=== PATIENT | male | born 1965 | race Caucasian/White ===

== ENCOUNTER 2016-12-01 18:19 | Emergency (ER) | payer BC, OTHER ==
[2016-12-01] MEDS ORDERED: Ondansetron INJ* 2 MG/ML VIAL IV ONE (19:16)
[2016-12-01] MEDS ORDERED: Ketorolac INJ* 30 MG/ML 1 ML VIAL IV ONE (19:16)
[2016-12-01] MEDS ORDERED: NS 0.9% 1000 ML* 1,000 ML IV ONE (19:16)
[2016-12-01 19:37] LABS: Hematocrit 49 % (42-52); Hemoglobin 16.7 g/dl (14.0-18.0); Mean Corpuscular HGB Conc 34 g/dl (31-36); Mean Corpuscular Hemoglobin 31 pg (27-31); Mean Corpuscular Volume 89 fL (80-94); Mean Platelet Volume 8 um3 (7.4-10.4); Red Blood Count 5.47 10^6/ul (4.0-5.4); Red Cell Distribution Width 13 % (10.5-15); White Blood Count 8.4 10^3/ul (3.5-10.8)
[2016-12-01 19:41] LABS: Urine Bilirubin Negative (Negative); Urine Glucose Negative (Negative); Urine Nitrite Negative (Negative)
[2016-12-01 19:48] LABS: Urine Bacteria Absent (Absent)
[2016-12-01 19:51] LABS: Albumin 4.6 g/dL (3.2-5.2); BUN/Creatinine Ratio 16.2 (8-20); C Reactive Protein 5.17 mg/L (< 5.00); Calcium 9.9 mg/dL (8.6-10.3); EGFR African American 85.2 (>60); EGFR Non-African American 66.3 (>60); Globulin 3.3 g/dL (2-4); Potassium 4.1 mmol/L (3.5-5.0); Total Bilirubin 0.9 mg/dL (0.2-1.0); Total Protein 7.9 g/dL (6.4-8.9)
--- NOTE | 2016-12-01 19:52 | RAD ---
INDICATION: LEFT flank pain. History of renal stones. COMPARISON: No relevant prior exams available on the [facility] PACS for comparison. TECHNIQUE: Multidetector CT images were obtained from the lung bases to the ischial tuberosities. Evaluation of the viscera is limited without IV contrast. Multiplanar reformation. REPORT: Unremarkable visualized inferior thorax. Decreased density of the liver consistent with fatty infiltration with focal sparing at the gallbladder fossa. No suspicious focal hepatic lesions or biliary dilatation. Multiple dependent gallstones in the gallbladder without additional CT abnormality of the gallbladder. Unremarkable appendix and spleen. Negative for CT abnormality of the upper GI, small bowel, or infra cecal appendix. Moderate colonic diverticulosis without findings of diverticulitis. Negative for ascites, free air, hernias. Normal adrenal glands. Amorphous 0.8 cm calcification at the upper pole of the RIGHT kidney. Few 2 -- 3 mm calyceal stones at the lower pole of the RIGHT kidney. 0.9 cm calyceal stone lower pole LEFT kidney. Mild LEFT hydronephrosis is traced to a 1.0 cm maximum dimension stone at the proximal LEFT ureter. Mild surrounding peripelvic periureteral inflammatory change. No additional abnormality of the ureters or partially distended urinary bladder. Unremarkable visualized male urogenital structures. Negative for lymphadenopathy. Normal diameter abdominal aorta and iliac arteries. Physiologic partial distention of the IVC. Negative for suspicious osseous lesions. IMPRESSION: 1. Bilateral nephrolithiasis. Mild LEFT hydronephrosis is traced to a 1.0 cm maximum dimension stone at the proximal LEFT ureter. 2. Hepatic steatosis. 3. Cholelithiasis. 4. Colonic diverticulosis. Normal appendix documented.
[2016-12-01] MEDS ORDERED: oxyCODONE/Acetamin 5/325 MG* TAB PO ONE (20:47)
[2016-12-01 20:57] VITALS: BP 162/90
[2016-12-01] MEDS ORDERED: Tamsulosin CAP* 0.4 MG PO SCH (21:00)
--- NOTE | 2016-12-02 13:11 | ED ---
Harvey Manriquez Rebecca, scribed for Merari Pedersen MD on 12/01/16 at 1948 . Back Pain - HPI Summary HPI Summary: Pt is a 51 y/o M accompanied by his who presents to ED c/o L flank pain. Pt reports he "was not feeling well the other day" with the pain beginning today at approximately 0800. Upon arrival at approximately 1830, the pain was severe, ranked 10/10, then at about 1930 the pain had started to diminish. Pain does not radiate to the testicles and is characterized as sharp. Sx aggravated and alleviated by nothing. Additionally c/o decreased urine output and dark urine with N/V, citing one episode of emesis while at work. Denies fever, abdominal pain, rash, edema, calf tenderness. PMHx kidney stones - has had 4 other episodes with similar sx and pain treated with Toradol. The last one was passed the day before his scheduled surgery. Allergy to Penicillin. Recently returned to the area from a trip to [place]. Has not had any appointments with the urologists in [place], previously followed up with [facility]. - History of Current Complaint Chief Complaint: EDFlankPain Stated Complaint: POSS KIDNEY STONE Time Seen by Provider: 12/01/16 19:16 Hx Obtained From: Patient Onset/Duration: Lasting Hours, Still Present Onset/Duration: Still Present Back Pain Location: Is Discrete @ - Left flank Severity Initially: Severe Severity Currently: Moderate Pain Intensity: 10 Pain Scale Used: 0-10 Numeric Character: Sharp Aggravating Symptom(s): Nothing Alleviating Symptom(s): Nothing Associated Signs And Symptoms: Positive: Other - N/V, decreased urine output and dark urine. Negative: Fever Related History: Similar Episode Dx As - Prior kidney stones - Allergies/Home Medications Allergies/Adverse Reactions: Allergies Allergy/AdvReac Type Severity Reaction Status Date / Time Penicillins Allergy Unknown Unknown Verified 09/24/15 19:38 Reaction Details PMH/Surg Hx/FS Hx/Imm Hx Endocrine/Hematology History: Denies: Hx Anticoagulant Therapy, Hx Diabetes, Hx Thyroid Disease Cardiovascular History: Reports: Hx Hypertension - lost 40 pounds, off meds now Denies: Hx Congestive Heart Failure, Hx Deep Vein Thrombosis, Hx Myocardial Infarction, Hx Pacemaker/ICD Respiratory History: Reports: Hx Asthma - as a child Denies: Hx Chronic Obstructive Pulmonary Disease (COPD), Hx Lung Cancer, Hx Pneumonia, Hx Pulmonary Embolism GI History: Denies: Hx Gall Bladder Disease, Hx Gastrointestinal Bleed, Hx Ulcer, Hx Urosepsis History: Reports: Hx Kidney Stones - 4x Denies: Hx Renal Disease Neurological History: Denies: Hx Dementia, Hx Migraine, Hx Seizures, Hx Transient Ischemic Attacks (TIA) Psychiatric History: Denies: Hx Anxiety, Hx Depression, Hx Schizophrenia, Hx Bipolar Disorder - Surgical History Surgery Procedure, Year, and Place: GANGLION REMOVAL ([facility]ST) AGE 14, WISDOM TEETH Infectious Disease History: No Infectious Disease History: Denies: Hx Clostridium Difficile, Hx Hepatitis, Hx Human Immunodeficiency Virus (HIV), Hx of Known/Suspected MRSA, Hx Shingles, Hx Tuberculosis, Hx Known/ Suspected VRE, Traveled Outside the [place] in Last 30 Days - Family History Known Family History: Positive: Other - CA Negative: Cardiac Disease, Hypertension, Diabetes - Social History Alcohol Use: Rare Substance Use Type: Reports: None Smoking Status (MU): Never Smoked Tobacco Review of Systems Negative: Fever Positive: Vomiting, Nausea. Negative: Abdominal Pain Positive: flank pain - Left, other - Decreased urine output and dark urine Positive: Other - NEGATIVE: calf tenderness. Negative: Edema Negative: Rash All Other Systems Reviewed And Are Negative: Yes Physical Exam Triage Information Reviewed: Yes Vital Signs On Initial Exam: Initial Vitals Temp Pulse Resp BP Pulse Ox 96.9 F 60 20 191/100 100 12/01/16 18:21 12/01/16 18:21 12/01/16 18:21 12/01/16 18:21 12/01/16 18:21 Vital Signs Reviewed: Yes Appearance: Positive: Well-Appearing, Well-Nourished, Pain Distress - moderate Skin: Positive: Warm, Skin Color Reflects Adequate Perfusion Head/Face: Positive: Normal Head/Face Inspection Eyes: Positive: Normal ENT: Positive: Normal ENT inspection Neck: Positive: Supple Respiratory/Lung Sounds: Positive: Clear to Auscultation, Breath Sounds Present , Other - No respiratory distress Cardiovascular: Positive: RRR, Pulses are Symmetrical in both Upper and Lower Extremities, Other - Brisk capillary refill; No calf tenderness. Negative: Murmur, Leg Edema Left, Leg Edema Right Abdomen Description: Positive: Nontender, Soft Bowel Sounds: Positive: Present Musculoskeletal: Positive: Strength/ROM Intact, Other - Left CVA tenderness Neurological: Positive: Sensory/Motor Intact, Alert, Oriented to Person Place, Time, Facial Symmetry, Speech Normal Psychiatric: Positive: Normal - [place] Coma Scale Coma Scale Total: 15 Diagnostics - Vital Signs Vital Signs Temp Pulse Resp BP Pulse Ox 12/01/16 18:21 96.9 F 60 20 191/100 100 - Laboratory Lab Results: Lab Results 12/01/16 12/01/16 Range/Units 19:20 19:20 WBC 8.4 (3.5-10.8) 10^3/ul RBC 5.47 H (4.0-5.4) 10^6/ul Hgb 16.7 (14.0-18.0) g/dl Hct 49 (42-52) % MCV 89 (80-94) fL MCH 31 (27-31) pg MCHC 34 (31-36) g/dl RDW 13 (10.5-15) % Plt Count 211 (150-450) 10^3/ul MPV 8 (7.4-10.4) um3 Neut % (Auto) 68.3 (38-83) % Lymph % (Auto) 20.9 L (25-47) % [place] % (Auto) 7.1 (1-9) % Eos % (Auto) 3.2 (0-6) % Baso % (Auto) 0.5 (0-2) % Absolute Neuts (auto) 5.8 (1.5-7.7) 10^3/ul Absolute Lymphs (auto) 1.8 (1.0-4.8) 10^3/ul Absolute Monos (auto) 0.6 (0-0.8) 10^3/ul Absolute Eos (auto) 0.3 (0-0.6) 10^3/ul Absolute Basos (auto) 0 (0-0.2) 10^3/ul Absolute Nucleated RBC 0.01 10^3/ul Nucleated RBC % 0.1 Urine Color Straw Urine Appearance Clear Urine pH 7.0 (5-9) Ur Specific [place] 1.005 L (1.010-1.030) Urine Protein 1+(30 mg/dl) H (Negative) Urine Ketones Negative (Negative) Urine Blood 1+ H (Negative) Urine Nitrate Negative (Negative) Urine Bilirubin Negative (Negative) Urine Urobilinogen Negative (Negative) Ur Leukocyte Esterase Trace H (Negative) Urine Glucose Negative (Negative) Result Diagrams: 12/01/16 19:20 12/01/16 19:20 Lab Statement: Any lab studies that have been ordered have been reviewed, and results considered in the medical decision making process. - CT Abd/Pel CT CT Interpretation: Positive (See Comments) - 1. Bilateral nephrolithiasis. Mild LEFT hydronephrosis is traced to a 1.0 cm maximum dimension stone at the proximal LEFT ureter. 2. Hepatic steatosis. 3. Cholelithiasis. 4. Colonic diverticulosis. Normal appendix documented. ED physician reviewed radiology report and agrees. CT Interpretation Completed By: Radiologist Re-Evaluation - Re-Evaluation First Eval Re-Evaluation Time: 20:07 Change: Unchanged Comment: Discussed CT results with the pt. His prior urologist was [facility], so he would like them to be consulted and updated. Second Eval Re-Evaluation Time: 20:32 Change: Improved Comment: Pain is controlled. Discussed D/C plan with the patient and that he should folow up with Dr. Everett. Back Pain Course/Dx - Course Assessment/Plan: Pt is a 51 y/o M accompanied by his who presents to ED c/ o L flank pain. Pt reports he "was not feeling well the other day" with the pain beginning today at approximately 0800. Upon arrival at approximately 1830, the pain was severe, ranked 10/10, then at about 1930 the pain had started to diminish. Pain does not radiate to the testicles and is characterized as sharp. Sx aggravated and alleviated by nothing. Additionally c/o decreased urine output and dark urine with N/V, citing one episode of emesis while at work. Denies fever, abdominal pain, rash, edema, calf tenderness. PMHx kidney stones - has had 4 other episodes with similar sx and pain treated with Toradol. The last one was passed the day before his scheduled surgery. Allergy to Penicillin. Recently returned to the area from a trip to [place]. Has not had any appointments with the urologists in [place], previously followed up with [facility]. Allergies Noted. CT Abd/Pel reveals "1. Bilateral nephrolithiasis. Mild LEFT hydronephrosis is traced to a 1.0 cm maximum. dimension stone at the proximal LEFT ureter. 2. Hepatic steatosis. 3. Cholelithiasis. 4. Colonic diverticulosis. Normal appendix documented." UA reveals urine color: straw, appearance: clear, specific gravity: 1.005, protein: 1+, blood: 1+, leukocyte esterase: trace, WBC: trace, RBC: 1+ and negative for ketones, nitrate, bilirubin, bacteria and glucose. Initially, was not able to contact [facility]. Will need to [facility] to consult with the urologist. Discussed care of pt with Dr. Everett at 2012 who advised PO pain medication, Flomax and a strainer and that he call at 0830 tomorrow morning to set up a follow up appointment. In the ED course, pt recieved Toradol, Zofran and fluids. Pt will be D/C to home with Dx of HTN in poor control, nephrolithiasis with hydronephrosis with Rx for Flomax and [place] 5-325 and a follow up with Dr. Everett. He understands and agrees. Pt medications reviewed this visit. Elevated BP noted and advised to f/u with PCP. - Diagnoses Provider Diagnoses: Hypertension, poor control, nephrolithiasis with hydronephrosis - Provider Notifications [facility] - At [phone] Time Discussed With Above Provider: 20:09 Instructed by Provider To: Other - Was not able to contact the [facility]. Will need to contact [facility] to ocnsult with the urologist. Discussed care of pt with Dr. Everett at 2012 who advised PO pain medication, Flomax and a strainer and that he call at 0830 tomorrow morning to set up a follow up appointment. Discharge - Discharge Plan Condition: Stable Disposition: HOME Prescriptions: HYDROcodone/ACETAMIN 5-325 MG* [[place] 5-325 TAB*] 1 tab PO Q4H PRN #18 tab MDD 6 PRN Reason: Pain Tamsulosin CAP* [Flomax CAP*] 0.4 mg PO BEDTIME #15 cap Patient Education Materials: Kidney Stones (ED) Forms: *Work Release Referrals: Christopher MORIN,Kye Copeland [Primary Care Provider] - Additional Instructions: We spoke with Dr. Karlos washington who is covering for the [facility]. Call [phone] tomorrow at 0830am and arrange for follow up in the next few days. Strain all of your urine. Take tamsulosin daily as directed. Use the hydrocodone as needed for severe pain. Return to the ER if increased pain, fever, vomiting, or any new or worsening symptoms. The documentation as recorded by the Harvey ferreira Rebecca accurately reflects the service I personally performed and the decisions made by me, Merari Pedersen MD.
== END 2016-12-01 20:57 | disposition home or self-care (01) ==
LOC: ED 18:19
DX: N13.2 Hydronephrosis with renal and ureteral calculous obstruction (principal); I10 Essential (primary) hypertension; Z88.0 Allergy status to penicillin
CPT/HCPCS: 36415; 74176; 80053; 81003; 81015; 83605; 85025; 86140; 87086; 96360; 96374; 96375; 99284; A9270-GY; J1885; J2405

== ENCOUNTER 2017-05-08 08:02 | Emergency (ER) | payer BC ==
[2017-05-08 08:49] VITALS: BP 151/106
--- NOTE | 2017-05-08 09:52 | UC ---
Respiratory Complaint HPI - HPI Summary HPI Summary: 1 month of cough and nasal drainage no reported fevers---patient is concerned as daughter is dx with "walking pneumonia" - History of Current Complaint Chief Complaint: UCRespiratory Stated Complaint: RESP ISSUE Time Seen by Provider: 05/08/17 09:45 Hx Obtained From: Patient Onset/Duration: Gradual Onset, Lasting Weeks - 4, Still Present Timing: Constant Severity Initially: Moderate Severity Currently: Moderate Pain Intensity: 0 Character: Cough: Nonproductive Aggravating Factors: Recumbent Position Alleviating Factors: Bronchodilator - in the past, OTC Meds, Upright Position Associated Signs And Symptoms: Positive: URI, Nasal Congestion, Sinus Discomfort - Allergies/Home Medications Allergies/Adverse Reactions: Allergies Allergy/AdvReac Type Severity Reaction Status Date / Time Penicillins Allergy Unknown Verified 05/08/17 08:44 Reaction Details Home Medications: Home Medications Guaifenesin/Dextromethorphan [Robitussin Cough-Chest Dm Liq] 20 ml PO ONCE PRN 05/08/17 [History Confirmed 05/08/17] PMH/Surg Hx/FS Hx/Imm Hx Previously Healthy: No Cardiovascular History: Hypertension Other History Of: Negative For: HIV, Hepatitis B, Hepatitis C, Anticoagulant Therapy - Surgical History Surgical History: Yes Surgery Procedure, Year, and Place: GANGLION REMOVAL ([facility]ST) AGE 14, WISDOM TEETH; Lithotripsy x 1 and laser removal of 11mm Kidney stone x 1. - Family History Known Family History: Positive: Other - CA Negative: Cardiac Disease, Hypertension, Diabetes - Social History Occupation: Employed Full-time Lives: With Family Alcohol Use: Rare Substance Use Type: None Smoking Status (MU): Never Smoked Tobacco - Immunization History Most Recent Influenza Vaccination: not 2016/2017 Most Recent Tetanus Shot: 12/2013 Review of Systems Constitutional: Negative Skin: Negative Eyes: Negative ENT: Nasal Discharge, Sinus Congestion Respiratory: Cough Cardiovascular: Negative Gastrointestinal: Negative Genitourinary: Negative Motor: Negative Neurovascular: Negative Musculoskeletal: Negative Neurological: Negative Psychological: Negative Is Patient Immunocompromised?: No All Other Systems Reviewed And Are Negative: Yes Physical Exam Triage Information Reviewed: Yes Appearance: Well-Appearing, No Pain Distress, Well-Nourished Vital Signs: Initial Vital Signs Temp 97.7 F 05/08/17 08:46 Pulse 87 05/08/17 08:46 Resp 18 05/08/17 08:46 BP 151/106 05/08/17 08:46 Pulse Ox 98 05/08/17 08:46 Vital Signs Reviewed: Yes Eye Exam: Normal Eyes: Positive: Conjunctiva Clear ENT Exam: Normal ENT: Positive: Normal ENT inspection, Hearing grossly normal, Pharynx normal, Nasal congestion, Nasal drainage, TMs normal, Uvula midline. Negative: Tonsillar swelling, Tonsillar exudate, Trismus, Muffled voice, Hoarse voice, Dental tenderness, Sinus tenderness Dental Exam: Normal Neck exam: Normal Neck: Positive: Supple, Nontender, No Lymphadenopathy Respiratory Exam: Normal Respiratory: Positive: Chest non-tender, Lungs clear, Normal breath sounds, No respiratory distress, No accessory muscle use Cardiovascular Exam: Normal Cardiovascular: Positive: RRR, No Murmur, Pulses Normal, Brisk Capillary Refill Musculoskeletal Exam: Normal Musculoskeletal: Positive: Strength Intact, ROM Intact, No Edema Neurological Exam: Normal Neurological: Positive: Alert, Muscle Tone Normal Psychological Exam: Normal Skin Exam: Normal UC Diagnostic Evaluation - Laboratory O2 Sat by Pulse Oximetry: 98 Respiratory Course/Dx - Course Course Of Treatment: Increase fluids, zithromax, flonase, abluterol follow with pcp prn - Differential Dx/Diagnosis Provider Diagnoses: Bronchitis, sinusitis Discharge - Discharge Plan Condition: Stable Disposition: HOME Patient Education Materials: Rhinosinusitis (ED), Acute Cough (ED), Hypertension (ED) Referrals: Christopher MORIN,Kye Copeland [Primary Care Provider] - 2 Weeks
== END 2017-05-08 10:00 | disposition home or self-care (01) ==
LOC: UCEAST 08:02
DX: J40 Bronchitis, not specified as acute or chronic (principal); J32.9 Chronic sinusitis, unspecified; I10 Essential (primary) hypertension; Z88.0 Allergy status to penicillin
CPT/HCPCS: 99212; G0463

== ENCOUNTER 2017-08-31 21:21 | Emergency (ER) | payer BC ==
[2017-08-31 21:54] VITALS: BP 153/95
--- NOTE | 2017-08-31 22:06 | UC ---
Cardiac HPI - HPI Summary HPI Summary: 52 y/o male presents to the urgent care c/o RT side rib pain s/p bending while working in the pool about 1 week ago. Pt reports he heard a pop sound. Pain is now 6/10 specially w/ movement to the RT side. He was mowing the yard yesterday and pain worsen. He hasn't been able to sleep well due to pain. He has taking Advil 600mg PO to alleviate symptoms. Last dose taking this morning. Pt reports he has similar episode about 5 years ago and he was Dx w/ a rib cartilage tear. Pt denies fever, SOB, chest pain, dizziness, abdominal pain, N/V /D. - History of Current Complaint Chief Complaint: UCGeneralIllness Stated Complaint: RIB INJURY Time Seen by Provider: 08/31/17 21:54 Hx Obtained From: Patient Onset/Duration: Gradual Onset, Lasting Weeks - 1 week, Still Present, Worse Since - yesterday Timing: Intermittent Episodes Lasting: Initial Severity: Moderate Current Severity: Moderate Pain Intensity: 6 Chest Pain Location: Diffuse, Right Lateral - side of chest Character: Sharp/Stabbing Aggravating Factor(s): Movement, Deep Breaths Alleviating Factor(s): Rest, OTC Meds Associated Signs & Symptoms: Positive: Negative. Negative: Chest Pain, Vision Changes, Anxiety, Recent Stress, Headaches, Numbness, Tingling, Weakness, Dizziness, SOB, Swelling, Syncope, Fever, Diaphoresis, Nausea/Vomiting, Palpitations, Cough, Hemoptysis, Back Pain, Abdominal Pain, Calf Pain/Swelling Related History: Similar Episode/Dx as - 5 yeas ago a cartilage tear - Risk Factors Pulmonary Embolism Risk Factors: Negative Cardiac Risk Factors: Hypertension, Elevated Lipids Atrial Fibrillation: Hypertension TAD Risk Factors: Negative - Allergy/Home Medications Allergies/Adverse Reactions: Allergies Allergy/AdvReac Type Severity Reaction Status Date / Time Penicillins Allergy Unknown Verified 08/31/17 21:48 Reaction Details PMH/Surg Hx/FS Hx/Imm Hx Previously Healthy: Yes Endocrine History: Dyslipidemia Cardiovascular History: Hypertension GI/ History: Kidney Stones Other History Of: Negative For: HIV, Hepatitis B, Hepatitis C, Anticoagulant Therapy - Surgical History Surgical History: Yes Surgery Procedure, Year, and Place: GANGLION REMOVAL ([facility]) AGE 14, WISDOM TEETH; Lithotripsy x 1 and laser removal of 11mm Kidney stone x 1. - Family History Known Family History: Positive: Hypertension - CA Negative: Cardiac Disease, Diabetes - Social History Occupation: Employed Full-time Lives: With Family Alcohol Use: Rare Substance Use Type: None Smoking Status (MU): Never Smoked Tobacco - Immunization History Most Recent Influenza Vaccination: not Most Recent Tetanus Shot: 12/2013 Review of Systems Constitutional: Negative Skin: Negative Eyes: Negative ENT: Negative Respiratory: Negative Cardiovascular: Chest Pain - RT lateral side rib pain s/p bending Gastrointestinal: Negative Genitourinary: Negative Motor: Negative Neurovascular: Negative Musculoskeletal: Negative Neurological: Negative Psychological: Negative Is Patient Immunocompromised?: No All Other Systems Reviewed And Are Negative: Yes Physical Exam - Summary Physical Exam Summary: Vital signs: reviewed General: Pt is well developed, well nourished male sitting comfortably on the examining table w/o any apparent respiratory or pain distress.. Skin: [employer], warm and dry, no diaphoresis, cyanosis or pallor. HEENT: -Head: normocephalic -Eyes: PERRLA, sclera and conjunctiva clear. -Ears:canals and TMs normal. -Nose: patent -Mouth/Throat: MMM, posterior pharynx clear. Neck: supple. FROM, No JVD, trachea in midline, no bruits. Chest: no orthopnea or dyspnea noted; no retractions or accessory muscle use, NT , no crepitus, CTA bilaterally, no wheezes, rhonchi, rales. Heart: RRR, no murmur, rub, or gallop.Point tenderness to palpation of RT lateral side ribs 7-10, no swelling or bruising observed on examination, pain elicited on RT lateral bending Abd: soft, NT, BSA, no epigastric tenderness, mass, pulsation; femoral pulses. Back: NT, no CVAT Extrems: no swelling, edema, tenderness. Neuro: A&O x 4, GCS 15, CNII XII intact, no LOC and no focal neuro deficits. Triage Information Reviewed: Yes Vital Signs: Initial Vital Signs Temp 97.9 F 08/31/17 21:42 Pulse 56 08/31/17 21:42 Resp 16 08/31/17 21:42 BP 153/95 08/31/17 21:42 Pulse Ox 98 08/31/17 21:42 - Assessment/Plan Course Of Treatment: 52 y/o male presents to the urgent care c/o RT side rib pain s/p bending while working in the pool about 1 week ago. Pt reports he heard a pop sound. Pain is now 6/10 specially w/ movement to the RT side. He was mowing the yard yesterday and pain worsen. He hasn't been able to sleep well due to pain. He has taking Advil 600mg PO to alleviate symptoms. Last dose taking this morning. Pt reports he has similar episode about 5 years ago and he was Dx w/ a rib cartilage tear. Pt denies fever, SOB, chest pain, dizziness, abdominal pain, N/V/D.Hx obtained. Point tenderness to palpation of RT lateral side ribs 7-10, no swelling or bruising observed on examination, pain elicited on RT lateral bending on examination. RT ribs w/ PA chest X-ray ordered. At this moment, no radiology reading available since it is past 10pm. I ask DR Bellamy to review X-ray to r/o any rib fractures and he states Chest X-ray was negative for fracture. I explained Pt that at this moment there is not final report on his X-ray, and that Dr Bellamy didn't see any fracture. However he will be notified tomorrow of final result. I explained the Pt that due to his symptoms there may be the possibility of a cartilage tear since Hx of that. I offecer him [place] for pain and he declines. He accepted a Toradol IM inj. Pt tolerated well IM inj and felt better. He was also give and Incentive Spirometer to encorage lung expansion and avoid atelectasis. PT educated in how to use it. Pt Rx Ibuprofen for pain. Strongly Advised to f/u w/ PCP for further management. Stronlgy advised to rest and avoid strenuous exercise or heavy lifting. Your BP is elevated today. please decrease salt in your diet, monitor BP and if it continues to be elevated please f/u with your PCP for further management. Pt understood and agreed w/ plan of care. Pt left the clinic ambulating and hemodynamically stable A&OX3 - Differential Diagnoses - Chest Pain Differential Diagnosis/HQI/PQRI: Acute WI, Chest Wall, GI Disease, Pulmonary Embolism, Other: - rib fracture, rib contusion - Clinical Impression Provider Diagnoses: 1- RT side rib pain s/p injury Discharge - Sign-Out/Discharge Documenting (check all that apply): Discharge/Admit/Transfer - D/c home - Discharge Plan Condition: Stable Disposition: HOME Prescriptions: Ibuprofen TAB* [Motrin TAB* 600 MG] 600 mg PO Q6H PRN #30 tab PRN Reason: Pain Patient Education Materials: Low-Sodium Diet (ED), Rib Contusion (ED) Forms: *Work Release Referrals: Kye Hatfield MD [Medical Doctor] - If Needed Christopher MORIN,Kye Copeland [Primary Care Provider] - 1 Day Additional Instructions: 1-Please take ibuprofen PO q6-8hrs prn as instructed after meals to alleviate pain and swelling. Rest, avoid heavy lifting , and strenuous exercise 2- Use the Spirometer to improve lung function and avoid any atelectasis. 3-Please f/u w/ your PCP for further evaluation and treatment on you Rib contusion 4-Your BP is elevated today. please decrease salt in your diet, monitor BP and if it continues to be elevated please f/u with your PCP for further management - Billing Disposition and Condition Condition: STABLE Disposition: Home
[2017-08-31] MEDS ORDERED: Ketorolac INJ* 30 MG/ML 1 ML VIAL IM PRN (22:24)
[2017-08-31] MEDS ORDERED: Ketorolac INJ* 30 MG/ML 1 ML VIAL ONE (22:33)
--- NOTE | 2017-09-01 07:47 | RAD ---
HISTORY: RT side rib pain COMPARISONS: November 29, 2012 VIEWS: 7, Frontal view of the chest with frontal and oblique views of the right hemithorax. FINDINGS: There are nondisplaced fractures of the lateral aspects of the eighth, ninth, and 10th ribs. There is no appreciable pneumothorax. IMPRESSION: NONDISPLACED FRACTURES OF THE LATERAL ASPECTS OF THE EIGHTH, NINTH, 10TH RIBS WITHOUT APPRECIABLE PNEUMOTHORAX.
--- NOTE | 2017-09-01 09:42 | ED ---
Progress - Progress Note Progress Note: Patient's final radiology read reveals "nondisplaced fractures of the lateral aspects of the eighth, ninth, and 10th ribs without appreciable pneumothorax". Patient was diagnosed and discharged with the diagnosis of rib contusion. Left message to call to update diagnosis however there will be no change in treatment plan unless patient has new symptoms. Discharge - Sign-Out/Discharge Documenting (check all that apply): Post-Discharge Follow Up - Discharge Plan Condition: Stable Disposition: HOME Prescriptions: Ibuprofen TAB* [Motrin TAB* 600 MG] 600 mg PO Q6H PRN #30 tab PRN Reason: Pain Patient Education Materials: Low-Sodium Diet (ED), Rib Contusion (ED) Forms: *Work Release Referrals: Kye Hatfield MD [Medical Doctor] - If Needed Kye White MD [Primary Care Provider] - 1 Day Additional Instructions: 1-Please take ibuprofen PO q6-8hrs prn as instructed after meals to alleviate pain and swelling. Rest, avoid heavy lifting , and strenuous exercise 2- Use the Spirometer to improve lung function and avoid any atelectasis. 3-Please f/u w/ your PCP for further evaluation and treatment on you Rib contusion 4-Your BP is elevated today. please decrease salt in your diet, monitor BP and if it continues to be elevated please f/u with your PCP for further management - Billing Disposition and Condition Condition: STABLE Disposition: Home
== END 2017-08-31 22:38 | disposition home or self-care (01) ==
LOC: UCEAST 21:21
DX: S22.41XA Multiple fractures of ribs, right side, initial encounter for closed fracture (principal); S27.9XXA Injury of unspecified intrathoracic organ, initial encounter; X50.1XXA Overexertion from prolonged static or awkward postures, initial encounter; Y93.89 Activity, other specified; Y92.095 Swimming-pool of other non-institutional residence as the place of occurrence of the external cause; Z88.0 Allergy status to penicillin; E78.5 Hyperlipidemia, unspecified; I10 Essential (primary) hypertension; Z87.442 Personal history of urinary calculi; Z82.49 Family history of ischemic heart disease and other diseases of the circulatory system; Z80.9 Family history of malignant neoplasm, unspecified
CPT/HCPCS: 96372; 99211; G0463; J1885

== ENCOUNTER 2017-12-06 09:56 | Emergency (ER) | payer BC ==
[2017-12-06 10:11] VITALS: BP 156/94
[2017-12-06] MEDS ORDERED: Ibuprofen TAB* 400 MG PO ONE (11:58)
--- NOTE | 2017-12-06 12:01 | UC ---
FLU HPI - HPI Summary HPI Summary: 52 y/o male presents to the urgent care c/o of fever, SAWYER, joint pains for the past 4 days. - History of Current Complaint Chief Complaint: UCGeneralIllness Stated Complaint: FEVER BODY ACHES Time Seen by Provider: 12/06/17 11:34 Hx Obtained From: Patient Onset/Duration: Gradual Onset, Lasting Days - 4 days, Worse Since - yesterday Severity Currently: Mild Severity Initially: Moderate Pain Intensity: 6 - headache Pain Scale Used: 0-10 Numeric Associated Signs & Symptoms: Positive: Fever, Myalgia, Nasal Congestion, Headache. Negative: Sore Throat, Vomiting, Diarrhea - Risk Factors Influenza Risk Factors: Negative - Allergy/Home Medications Allergies/Adverse Reactions: Allergies Allergy/AdvReac Type Severity Reaction Status Date / Time Penicillins Allergy Unknown Verified 12/06/17 10:11 Reaction Details PMH/Surg Hx/FS Hx/Imm Hx Previously Healthy: Yes Endocrine History: Dyslipidemia - diet controlled Cardiovascular History: Hypertension GI/ History: Kidney Stones Other History Of: Negative For: HIV, Hepatitis B, Hepatitis C, Anticoagulant Therapy - Surgical History Surgical History: Yes Surgery Procedure, Year, and Place: GANGLION REMOVAL (WRIST) AGE 14, WISDOM TEETH; Lithotripsy x 1 and laser removal of 11mm Kidney stone x 1. - Family History Known Family History: Positive: Hypertension - CA, Other - CA Negative: Cardiac Disease, Diabetes - Social History Occupation: Employed Full-time Lives: With Family Alcohol Use: Rare Substance Use Type: None Smoking Status (MU): Never Smoked Tobacco - Immunization History Most Recent Influenza Vaccination: not 2016/2017 Most Recent Tetanus Shot: 12/2013 Review of Systems Constitutional: Fever, Fatigue, Other - body aches Skin: Negative Eyes: Negative ENT: Nasal Discharge - clear, Sinus Congestion Respiratory: Negative Cardiovascular: Negative Gastrointestinal: Negative Genitourinary: Negative Motor: Negative Neurovascular: Negative Musculoskeletal: Arthralgia Neurological: Headache Psychological: Negative Is Patient Immunocompromised?: No All Other Systems Reviewed And Are Negative: Yes Physical Exam - Summary Physical Exam Summary: VITAL SIGNS: Reviewed. GENERAL: Patient is a well developed and nourished male who is sitting comfortable in the examining table. Patient is not in any acute respiratory distress. HEAD AND FACE: No signs of trauma. No ecchymosis, hematomas or skull depressions. No sinus tenderness. EYES: PERRLA, EOMI x 2, No injected conjunctiva, no nystagmus. No photophobia. EARS: Hearing grossly intact. Ear canals and tympanic membranes are within normal limits. Nose: edematous and erythematous nasal mucosa w/ clear nasal discharge. MOUTH: Positive no erythema, no tonsillar enlargement. Uvula in midline. NECK: Supple, trachea is midline, Positive anterior cervical lymphadenopathy, no JVD, no carotid bruit, no c-spine tenderness, neck with full ROM. No meningeal signs, no Kernig's or brudzinskis signs. CHEST: Symmetric, no tenderness at palpation LUNGS: Clear to auscultation bilaterally. No wheezing or crackles. CVS: Regular rate and rhythm, S1 and S2 present, no murmurs or gallops appreciated. ABDOMEN: Soft, non-tender. No signs of distention. No rebound no guarding, and no masses palpated. Bowel sounds are normal. EXTREMITIES: FROM in all major joints, no edema, no cyanosis or clubbing. NEURO: Alert and oriented x 3. No acute neurological deficits. Speech is normal and follows commands. SKIN: Dry and warm Triage Information Reviewed: Yes Vital Signs: Initial Vital Signs Temp 100.1 F 12/06/17 10:07 Pulse 100 12/06/17 10:07 Resp 18 12/06/17 10:07 BP 156/94 12/06/17 10:07 Pulse Ox 100 12/06/17 10:07 Flu Course/Dx - Differential Dx/Diagnosis Differential Diagnosis/HQI/PQRI: Bronchitis, Influenza, Pneumonia, Upper Respiratory Infection, Other - lyme disease Provider Diagnoses: 1- viral syndrome. 2- fever. 3- Uncontrolled HTN Discharge - Sign-Out/Discharge Documenting (check all that apply): Patient Departure - D/c home All imaging exams completed and their final reports reviewed: No Studies - Discharge Plan Condition: Stable Disposition: HOME Prescriptions: Ibuprofen TAB* [Motrin TAB* 600 MG] 600 mg PO Q6H PRN #30 tab PRN Reason: Pain Patient Education Materials: Viral Syndrome (ED), Low-Sodium Diet (ED) Forms: *Work Release Referrals: Christopher MORIN,Kye Copeland [Primary Care Provider] - 3 Days Additional Instructions: 1-Please take ibuprofen PO q6-8hrs prn as instructed after meals to alleviate fever, pain and joint pain. Increase fluid intake, eat well, rest and avoid strenuous exercise. 2- influenza A&b are negative. Lyme serology sent to lab to r/o Lyme since Hx of tick bite. You will be notified of any abnormality for further treatment 3- Use the incentive spirometry as directed to improve lung function since Hx of Rib fracture in 08/2017. 4-If symptoms do not improve or worsen please return to the urgent care or f/u with your PCP 3 days for further evaluation and treatment. 5-Your BP is elevated today. please decrease salt in your diet, monitor BP and if it continues to be elevated please f/u with your PCP for further management - Billing Disposition and Condition Condition: STABLE Disposition: Home
== END 2017-12-06 12:16 | disposition home or self-care (01) ==
LOC: UCEAST 09:56
DX: B34.9 Viral infection, unspecified (principal); R50.9 Fever, unspecified; I10 Essential (primary) hypertension; R51 Headache; R09.81 Nasal congestion; M79.1 Myalgia; Z88.0 Allergy status to penicillin
CPT/HCPCS: 86618; 99212; A9270-GY; G0463